=== PATIENT | male | born 1950 | race Two or more races ===

== ENCOUNTER 2020-04-08 13:26 | Outpatient (CLI) | payer OTHER ==
[~2020-04-08 13:26] MED LIST: METFORMIN HCL1000 MG PO; NOVOLIN N100 UNITS/ IJ; ZESTRIL10 MG PO
== END 2020-04-08 13:31 | disposition home or self-care (01) ==
LOC: LAB 13:26
PROVIDERS: ATTEND Radiology Diagnostic Radiology
DX: N20.0 Calculus of kidney (principal)

== ENCOUNTER 2020-04-09 09:07 | Outpatient (CLI) | payer OTHER | END 2020-04-09 09:35 | disposition home or self-care (01) | LOC: TOM 09:07 | PROVIDERS: ATTEND Internal Medicine Cardiovascular Disease | DX: R10.84 Generalized abdominal pain (principal) ==

== ENCOUNTER 2023-10-19 09:00 | Outpatient (CLI) | payer OTHER | END 2023-10-19 09:06 | disposition home or self-care (01) | LOC: SONOGRAMA 09:00 | PROVIDERS: ATTEND Internal Medicine Gastroenterology | DX: R10.9 Unspecified abdominal pain (principal); R19.7 Diarrhea, unspecified ==

== ENCOUNTER → 2023-10-19 10:50 | Outpatient (CLI) | payer OTHER ==
[2023-10-19 11:47] LABS: HEMATOCRIT 40.1 % (39.0-48.0); HEMOGLOBIN 13.3 g/dL (13-16.00); MEAN CORPUSCULAR HEMOGLOBIN 27.1 pg (27.00-32.0); MEAN CORPUSCULAR HGB CONC 33.1 g/dl (32.0-36.0); PLATELET COUNT 177 K/uL (150-450); RED BLOOD COUNT 4.88 M/uL (4.00-6.00); RED CELL DISTRIBUTION WIDTH 18.4 % (11.5-14.5)
[2023-10-19 12:18] LABS: ALBUMIN 3.5 gm/dL (3.4-5.0); ALKALINE PHOSPHATASE 118 U/L (50-136); ALT/SGPT 48 U/L (12-78); AMYLASE 36 U/L (25-115); ANION GAP 3 (10.0-20.0); AST/SGOT 27 U/L (15-37); BILIRUBIN TOTAL 0.52 mg/dL (0.3-1.2); BLOOD UREA NITROGEN 15 mg/dL (7-18); BUN CREA RATIO 26 (7.0-25.0); CALCIUM 9.5 mg/dL (8.5-10.1); CARBON DIOXIDE 33 mEq/L (21-32); CHLORIDE 104 mmol/L (98-107); CREATININE SERUM 0.57 mg/dL (0.70-1.30); GFR 140.91; GLOBULINA 3.1 G/DL (2.4-3.5); GLUCOSE FASTING 150 mg/dL (65-100); LIPASE 26 U/L (13-75); OSMOLALITY SERUM 276 MOSM/KG (275-295); POTASSIUM 4.14 mEq/L (3.5-5.1); SODIUM 136 mmol/L (136-145); TOTAL PROTEIN 6.6 gm/dL (6.4-8.2)
[2023-10-19 12:19] LABS: C-REACTIVE PROTEIN < 0.29 MG/DL (0.00-0.29)
== END | disposition home or self-care (01) ==
LOC: LAB 10:50
PROVIDERS: ATTEND Internal Medicine Gastroenterology
DX: R19.7 Diarrhea, unspecified (principal)